=== PATIENT | female | born 1995 | race Caucasian/White ===

== ENCOUNTER 2017-01-31 13:30 | Emergency (ER) | payer MEDICAID, OTHER ==
[~2017-01-31] VITALS: Ht 165.1 cm; Wt 59.9 kg
[~2017-01-31 13:30] MED LIST: CEPHALEXIN500 MG PO; METRONIDAZOLE500 M2 PO; MINOCYCLINE 10100 MG PO; MIRENA52 MG IU; VIBRAMYCIN 100100 MG PO
--- NOTE | 2017-01-31 14:13 | Emergency Room Report ---
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 N Clinical Suspician of Infection? N Mental Status: 1 - Regular (Normal Baseline) Sepsis Risk:Possible Sepsis Risk Have you (or family members/close friends) recently traveled outside the [place]? N If Yes, where/when: Have you had exposure to infectious disease within the past month? TB? Other? Specify: Source patient, RN notes reviewed, police, RN/MD Exam Limitations no limitations Comment This is a 21-year-old female patient brought in the ER by [place] [employer] under arrest, for medical clearance. She is known with drug related charges to the Police Department, admits willingly of abusing drugs over a number of years. Patient stated that she's been recently "hooked on heroin", with a last dose of IV drugs, heroin, last night. Patient appears anxious, sweaty. The police officer crime prevention stated that he has arrested patient outstanding charges, unrelated to current condition. ALLERGIES Coded Allergies: Sulfa (Sulfonamide Antibiotics) (Mild, 08/29/15) amoxicillin (Mild, 08/29/15) azithromycin (Mild, 08/29/15) penicillin G (Mild, 08/29/15) Home Medications Reported Medications Levonorgestrel (Mirena) 52 MG IU History Medical History General CAD? No Angina: No [place]: No Hypertension? No Hyperlipidemia? No CHF? No DVT? No PE? No COPD? No Asthma? Yes Anemia? No GERD? No Gastric ulcers? No GI Bleed? No Hernia? No Thyroid Problems? No Hypothyroidism? No CVA? No Seizures? Yes Diabetes? No Insulin Dependent: No Insulin Pump: No Home FSBS? No Renal Insuffiency? No End Stage Renal Disease? No UTI? No Stones? No BPH? No GB Disease: No Nephritic Syndrome? No Asplenia? No Hepatitis? No Sickle Cell Disease? No Arthritis? No Migraines? No Cataracts? No Glaucoma? No MRSA? No HIV? No TB? No Anxiety? No Depression? No Cancer? No More? 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 Social History Smoking Hx Smoker: Current Every Day Smoker Tobacco: Yes Type Cigarettes Packs/day < 1 Pack Alcohol Alcohol: No Review of Systems All Other Systems Reviewed and Negative Comment Here for medical clearance Physical Exam Vital Signs Vital Signs Date Time Temp Pulse Resp B/P Pulse O2 O2 Flow FiO2 Ox Delivery Rate 01/31 1638 99.6 100 17 120/73 100 01/31 1618 114 18 122/57 97 01/31 1542 112 18 115/64 97 01/31 1436 112 22 119/69 98 01/31 1334 98.7 144 22 127/97 97 General Appearance normal appearance, WD/WN, anxious Neck normal inspection, non-tender, supple, full range of motion Respiratory Status Yes: trachea midline, chest symmetrical, non tender chest. No: respiratory distress. Lung Sounds bilateral: normal breath sounds, lungs clear. 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 No Comment At receiving 2 bags of IV fluids, and being observed, patient's condition improved. Patient appears to be resting calmly, in no acute distress heart rate is 102. Confronted patient with her drug screen, patient confessed in that she has injecting herself with some heroine approximately one week ago as well. Advised patient that she needs to quit abusing/using any type of street/illicit drugs. She will have to follow up with [facility] for outpatient drug rehab. Patient medically aware of her high risk behavior, and possible complications, including AIDS, hepatitis, endocarditis, sudden , sepsis, etc. Results/Orders Laboratory Tests 01/31/17 1410: Sodium 139, Potassium 3.7, Chloride 100, Carbon Dioxide 28, BUN 7, Creatinine 0.9, Estimated Creat Clear 93, Estimated GFR (MDRD) 79, Glucose 104, Calcium 9.6 , Total Bilirubin 0.5, AST 19, ALT 23, Alkaline Phosphatase 124 H, Total Protein 9.1 H, Albumin 3.7, Globulin 5.4 H, Albumin/Globulin Ratio 0.7 L, WBC 4.5 L, RBC 4.97, Hgb 14.8, Hct 43.1, MCV 86.8, RDW 12.9, Plt Count 190, MPV 6.7 L, Gran % 69.5, Gran # 3.1, Lymphocytes % 25.0, Monocytes % 3.2, Eosinophils % 1.7, Basophils % 0.5, Lymphocytes # 1.1, Monocytes # 0.1, Eosinophils # 0.1, Basophils # 0.0, PUBS MCHC 34.1, MCH 29.6 01/31/17 1402: Creatine Kinase Cancelled, CK-MB (CK-2) Rel Index Cancelled, CK and CKMB Interp Cancelled, Troponin I Cancelled 01/31/17 1350: Opiates Screen POSITIVE H, Urine Methadone Screen NEGATIVE, Barbiturates NEGATIVE, Phencyclidine Screen NEGATIVE, Amphetamines Screen NEGATIVE, Benzodiazepines Screen NEGATIVE, Cocaine Screen POSITIVE H, Marijuana (THC) Screen NEGATIVE, Urine Color DK YELLOW, Urine Appearance SL CLOUDY, Urine pH 6.0 , Ur Specific [place] >= 1.030, Urine Protein 1+ H, Urine Ketones TRACE H, Urine Blood TRACE-INTACT, Urine Nitrate POSITIVE H, Urine Bilirubin 1+ H, Urine Urobilinogen 1.0, Ur Leukocyte Esterase 1+ H, Urine WBC 5-10, Ur Squamous Epith Cells 5-10, Calcium Oxalate Crystal 2+, Urine Bacteria 4+, Urine Glucose NEGATIVE Current Medication Orders Sig/Shala Start time Last Medication Dose Route Stop Time Status Admin Sodium Chloride 1,000 ML .STK-MED ONE 01/31 1539 DC IV Sodium Chloride 1,000 ML .Q1H1M 01/31 1530 DC 05/ IV 01/31 1630 1539 Sodium Chloride 10 ML PRN PRN 01/31 1530 DCD IV 02/01 1522 Sodium Chloride 10 ML PRN PRN 01/31 1415 DCD IV 02/01 1401 Sodium Chloride 1,000 ML .Q1H1M 01/31 1415 DC 05/03 IV / 1515 1415 Sodium Chloride 10 ML PRN PRN 01/31 1415 DCD IV 02/01 1403 Sodium Chloride 1,000 ML .STK-MED ONE 01/31 1407 DC IV Orders Procedure Date/time Status DRUG ABUSE SCREEN (TRIAGE) 01/31 1432 Complete IV SALINE LOCK 01/31 1402 Active URINALYSIS/COMPLETE 01/31 1402 Complete URINE 01/31 1402 Complete CBC WITH AUTO DIFF 01/31 1402 Complete CHEM 12 PROFILE 01/31 1402 Complete CULTURE, URINE 01/31 1350 Active Departure Departure Time of Disposition 1634 Disposition DC Home or Self Care(routine) Clinical Impression Primary Impression: Heroin addiction Secondary Impressions: Cocaine addiction Qualifiers: Substance use status: with unspecified cocaine-induced disorder Qualified Code: F14.29 - Cocaine dependence with unspecified cocaine-induced disorder Condition STABLE Referrals [facility]: Tomorrow-Call Office Patient Instructions Chemical Dependency (Narcotic) (Alternative Therapy), DI for Cocaine Use Disorder Additional Instructions You're medically clear for incarceration today. Please follow up with [facility] within the next 2 days, upon discharge from long term. Stop any illicit/street drugs, immediately. Discharge Counseling Counseled pt/family regarding diagnosis, test results, medications/RX, home care, follow up needs Comment You're medically clear for incarceration today. Please follow up with [facility] within the next 2 days, upon discharge from long term. Stop any illicit/street drugs, immediately. ED Critical Care Critical Care No at [phone]
--- NOTE | 2017-01-31 14:13 | Emergency Room Report ---
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 N Clinical Suspician of Infection? N Mental Status: 1 - Regular (Normal Baseline) Sepsis Risk:Possible Sepsis Risk Have you (or family members/close friends) recently traveled outside the [place]? N If Yes, where/when: Have you had exposure to infectious disease within the past month? TB? Other? Specify: Source patient, RN notes reviewed, police, RN/MD Exam Limitations no limitations Comment This is a 21-year-old female patient brought in the ER by [place] [employer] under arrest, for medical clearance. She is known with drug related charges to the Police Department, admits willingly of abusing drugs over a number of years. Patient stated that she's been recently "hooked on heroin", with a last dose of IV drugs, heroin, last night. Patient appears anxious, sweaty. The [place] police launch commander stated that he has arrested patient outstanding charges, unrelated to current condition. ALLERGIES Coded Allergies: Sulfa (Sulfonamide Antibiotics) (Mild, 08/29/15) amoxicillin (Mild, 08/29/15) azithromycin (Mild, 08/29/15) penicillin G (Mild, 08/29/15) Home Medications Reported Medications Levonorgestrel (Mirena) 52 MG IU History Medical History General CAD? No Angina: No [place]: No Hypertension? No Hyperlipidemia? No CHF? No DVT? No PE? No COPD? No Asthma? Yes Anemia? No GERD? No Gastric ulcers? No GI Bleed? No Hernia? No Thyroid Problems? No Hypothyroidism? No CVA? No Seizures? Yes Diabetes? No Insulin Dependent: No Insulin Pump: No Home FSBS? No Renal Insuffiency? No End Stage Renal Disease? No UTI? No Stones? No BPH? No GB Disease: No Nephritic Syndrome? No Asplenia? No Hepatitis? No Sickle Cell Disease? No Arthritis? No Migraines? No Cataracts? No Glaucoma? No MRSA? No HIV? No TB? No Anxiety? No Depression? No Cancer? No More? 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 Social History Smoking Hx Smoker: Current Every Day Smoker Tobacco: Yes Type Cigarettes Packs/day < 1 Pack Alcohol Alcohol: No Review of Systems All Other Systems Reviewed and Negative Comment Here for medical clearance Physical Exam Vital Signs Vital Signs Date Time Temp Pulse Resp B/P Pulse O2 O2 Flow FiO2 Ox Delivery Rate 01/31 1638 99.6 100 17 120/73 100 01/31 1618 114 18 122/57 97 01/31 1542 112 18 115/64 97 01/31 1436 112 22 119/69 98 01/31 1334 98.7 144 22 127/97 97 General Appearance normal appearance, WD/WN, anxious Neck normal inspection, non-tender, supple, full range of motion Respiratory Status Yes: trachea midline, chest symmetrical, non tender chest. No: respiratory distress. Lung Sounds bilateral: normal breath sounds, lungs clear. 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 No Comment At receiving 2 bags of IV fluids, and being observed, patient's condition improved. Patient appears to be resting calmly, in no acute distress heart rate is 102. Confronted patient with her drug screen, patient confessed in that she has injecting herself with some heroine approximately one week ago as well. Advised patient that she needs to quit abusing/using any type of street/illicit drugs. She will have to follow up with [facility] for outpatient drug rehab. Patient medically aware of her high risk behavior, and possible complications, including AIDS, hepatitis, endocarditis, sudden , sepsis, etc. Results/Orders Laboratory Tests 01/31/17 1410: Sodium 139, Potassium 3.7, Chloride 100, Carbon Dioxide 28, BUN 7, Creatinine 0.9, Estimated Creat Clear 93, Estimated GFR (MDRD) 79, Glucose 104, Calcium 9.6 , Total Bilirubin 0.5, AST 19, ALT 23, Alkaline Phosphatase 124 H, Total Protein 9.1 H, Albumin 3.7, Globulin 5.4 H, Albumin/Globulin Ratio 0.7 L, WBC 4.5 L, RBC 4.97, Hgb 14.8, Hct 43.1, MCV 86.8, RDW 12.9, Plt Count 190, MPV 6.7 L, Gran % 69.5, Gran # 3.1, Lymphocytes % 25.0, Monocytes % 3.2, Eosinophils % 1.7, Basophils % 0.5, Lymphocytes # 1.1, Monocytes # 0.1, Eosinophils # 0.1, Basophils # 0.0, PUBS MCHC 34.1, MCH 29.6 01/31/17 1402: Creatine Kinase Cancelled, CK-MB (CK-2) Rel Index Cancelled, CK and CKMB Interp Cancelled, Troponin I Cancelled 01/31/17 1350: Opiates Screen POSITIVE H, Urine Methadone Screen NEGATIVE, Barbiturates NEGATIVE, Phencyclidine Screen NEGATIVE, Amphetamines Screen NEGATIVE, Benzodiazepines Screen NEGATIVE, Cocaine Screen POSITIVE H, Marijuana (THC) Screen NEGATIVE, Urine Color DK YELLOW, Urine Appearance SL CLOUDY, Urine pH 6.0 , Ur Specific [place] >= 1.030, Urine Protein 1+ H, Urine Ketones TRACE H, Urine Blood TRACE-INTACT, Urine Nitrate POSITIVE H, Urine Bilirubin 1+ H, Urine Urobilinogen 1.0, Ur Leukocyte Esterase 1+ H, Urine WBC 5-10, Ur Squamous Epith Cells 5-10, Calcium Oxalate Crystal 2+, Urine Bacteria 4+, Urine Glucose NEGATIVE Current Medication Orders Sig/Shala Start time Last Medication Dose Route Stop Time Status Admin Sodium Chloride 1,000 ML .STK-MED ONE 01/31 1539 DC IV Sodium Chloride 1,000 ML .Q1H1M 01/31 1530 DC 05/ IV 01/31 1630 1539 Sodium Chloride 10 ML PRN PRN 01/31 1530 DCD IV 02/01 1522 Sodium Chloride 10 ML PRN PRN 01/31 1415 DCD IV 02/01 1401 Sodium Chloride 1,000 ML .Q1H1M 01/31 1415 DC 05/03 IV / 1515 1415 Sodium Chloride 10 ML PRN PRN 01/31 1415 DCD IV 02/01 1403 Sodium Chloride 1,000 ML .STK-MED ONE 01/31 1407 DC IV Orders Procedure Date/time Status DRUG ABUSE SCREEN (TRIAGE) 01/31 1432 Complete IV SALINE LOCK 01/31 1402 Active URINALYSIS/COMPLETE 01/31 1402 Complete URINE 01/31 1402 Complete CBC WITH AUTO DIFF 01/31 1402 Complete CHEM 12 PROFILE 01/31 1402 Complete CULTURE, URINE 01/31 1350 Active Departure Departure Time of Disposition 1634 Disposition DC Home or Self Care(routine) Clinical Impression Primary Impression: Heroin addiction Secondary Impressions: Cocaine addiction Qualifiers: Substance use status: with unspecified cocaine-induced disorder Qualified Code: F14.29 - Cocaine dependence with unspecified cocaine-induced disorder Condition STABLE Referrals [facility]: Tomorrow-Call Office Patient Instructions Chemical Dependency (Narcotic) (Alternative Therapy), DI for Cocaine Use Disorder Additional Instructions You're medically clear for incarceration today. Please follow up with [facility] within the next 2 days, upon discharge from fdc. Stop any illicit/street drugs, immediately. Discharge Counseling Counseled pt/family regarding diagnosis, test results, medications/RX, home care, follow up needs Comment You're medically clear for incarceration today. Please follow up with [facility] within the next 2 days, upon discharge from fdc. Stop any illicit/street drugs, immediately. ED Critical Care Critical Care No at [id number]
[2017-01-31 14:14] LABS: URINE BLOOD TRACE-INTACT (NEG)
[2017-01-31 14:16] LABS: URINE BILIRUBIN - DIPSTICK 1+ (NEG)
[2017-01-31 14:27] LABS: HEMOGLOBIN 14.8 g/dL (12.2-16.2); LYMPH # 1.1 K/mm3 (0.7-4.5)
[2017-01-31 14:42] LABS: AMPHETAMINES/METAMPHETAMINES NEGATIVE ng/mL (<1000)
[2017-01-31 16:38] VITALS: BP 120/73
== END 2017-01-31 16:42 | disposition home or self-care (01) ==
LOC: ER 13:30
PROVIDERS: Emergency Medicine
DX: F11.20 Opioid dependence, uncomplicated (principal); F14.20 Cocaine dependence, uncomplicated